=== PATIENT | female | born 1965 | race Caucasian/White ===

== ENCOUNTER → 2018-09-03 | Outpatient (REF) ==
--- NOTE | 2018-09-03 22:07 | REP ---
Clinical: Pain. Technique: AP, lateral, bilateral oblique and sunrise views of the left knee. 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 Femoral and tibial hardware appears intact and normal. Osseous structures are intact and without acute fracture or significant degenerative changes. Impression: Normal changes with respect to prior partial arthroplasty. No significant degenerative changes. No acute injury. Electronically Signed by Marco Antonio Guzman MD 09/03/2018 09:58 P
== END ==
LOC: M SMT 13:21
PROVIDERS: ATTEND Internal Medicine
DX: Z02.71 Encounter for disability determination (principal)

== ENCOUNTER → 2018-09-23 | Outpatient (REF) ==
--- NOTE | 2018-09-23 10:00 | REP ---
Clinical: Pain. Technique: AP, lateral, bilateral oblique and sunrise views of the right knee. Findings: Mild osteoarthritic degenerative changes include subtle early marginal spurring primarily along the medial tibiofemoral compartment as well as increase sclerosis to the tibial plateau and posterior patellar margin with associated decreased patellofemoral joint space. No acute fracture dislocation. No obvious effusion. Impression: Mild osteoarthritic degenerative changes. Electronically Signed by Marco Antonio Guzman MD 09/23/2018 09:51 A
== END ==
LOC: M SMT 09:15
PROVIDERS: ATTEND Internal Medicine
DX: Z02.71 Encounter for disability determination (principal)